=== PATIENT | male | born 1970 | race Two or more races ===

== ENCOUNTER 2019-05-24 20:22 | Emergency (ER) | payer SELFPAY ==
[2019-05-24 20:33] VITALS: BP 132/93; PULSE 89; TEMP 98.1; BMI 25.7
--- NOTE | 2019-05-24 22:03 | PDOC ---
History of Present Illness - General Chief Complaint: Chest Pain Stated Complaint: CHEST PAIN Time Seen by Provider: 05/24/19 21:47 - History of Present Illness Initial Comments: 05/24/19 23:24 48m with no pmh presents to the ED for tingling over the fingertips and toes for the past 2 months. He also rpesented to a ED yesterday for chest pain reproducible by palpation at [facility], was given Lorazepam and sent home. Pain has now resolved but he wanted a second opinion about his extremity tingling. The tingling covers the 2,3 and 4th fingertips. Saw his pcp 2 month s ago when the symtpoms started and was sent home with reassurance. Was told that he was prediabetic by ha1c 2 month ago so he started a strict healthy diet of protein and vegetable and implemented cardio routine to his workout regimen. Only supplements taken are whey protein and L-carnitine. Tendency to bite the top of his fingers, creating multiple scabs over them. Past History - Past Medical History Allergies/Adverse Reactions: Allergies Allergy/AdvReac Type Severity Reaction Status Date / Time No Known Allergies Allergy Verified 05/24/19 20:34 COPD: No Diabetes: Yes ("Pre-Diabetes") HTN: Yes - Suicide/Smoking/Psychosocial Hx Smoking History: Former smoker Have you smoked in the past 12 months: No If you are a former smoker, when did you quit?: 2016 Information on smoking cessation initiated: Yes Hx Alcohol Use: No Drug/Substance Use Hx: No Review of Systems - Review of Systems Able to Perform ROS?: Yes Is the patient limited Beninese proficient: No Constitutional: No: Symptoms Reported HEENTM: No: Symptoms Reported Respiratory: No: Symptoms reported Cardiac (ROS): No: Symptoms Reported ABD/GI: No: Symptoms Reported : No: Symptoms Reported Musculoskeletal: No: Symptoms Reported Integumentary: No: Symptoms Reported Neurological: Yes: See HPI All Other Systems: Reviewed and Negative *Physical Exam - Vital Signs Last Vital Signs Temp Pulse Resp BP Pulse Ox 98.1 F 89 20 132/93 98 05/24/19 20:24 05/24/19 20:24 05/24/19 20:24 05/24/19 20:24 05/24/19 20:24 - Physical Exam General Appearance: Yes: Nourished, Appropriately Dressed. No: Apparent Distress HEENT: positive: EOMI, [place], Normal ENT Inspection Respiratory/Chest: positive: Lungs Clear, Normal Breath Sounds. negative: Chest Tender, Respiratory Distress Cardiovascular: positive: Regular Rhythm, Regular Rate, S1, S2 Gastrointestinal/Abdominal: positive: Normal Bowel Sounds, Flat, Soft. negative : Tender Extremity: positive: Normal Capillary Refill, Normal Inspection, Normal Range of Motion, Other (negative tinnel sign) Integumentary: positive: Other (scabs over 2,3,4 dorsal surface of fingers b/l ) Neurologic: positive: Fully Oriented, Alert, Normal Mood/Affect, Normal Response , Motor Strength 02/15 ED Treatment Course - LABORATORY CBC & Chemistry Diagram: 05/24/19 22:45 05/24/19 22:45 - ADDITIONAL ORDERS Additional order review: Laboratory Results 05/24/19 05/24/19 05/24/19 22:45 22:45 22:45 Sodium 140 Potassium 3.7 Chloride 104 Carbon Dioxide 27 Anion Gap 9 BUN 20.6 H Creatinine 1.3 Est GFR (CKD-EPI)AfAm 75.84 Est GFR (CKD-EPI)NonAf 65.43 Random Glucose 99 Calcium 9.1 Total Bilirubin 0.5 AST 25 ALT 31 Alkaline Phosphatase 54 Troponin I < 0.02 Total Protein 7.0 Albumin 4.0 TSH 2.03 05/24/19 22:45 RBC 5.29 MCV 79.4 L MCHC 33.0 RDW 14.5 MPV 8.1 Neutrophils % 55.8 Lymphocytes % 27.3 Monocytes % 13.1 H Eosinophils % 3.3 Basophils % 0.5 Medical Decision Making - Medical Decision Making 05/24/19 23:36 48m with tingling over fingers and toes for 2 months. Will check electrolytes and sugar, as well as cardiac enzymes and ekg to r/o cardiac etiology. This is liekly neuropathy. Low suspicion for carpal tunnel syndrome 05/24/19 23:39 All labs wnl EKG normal sinus. Ok to dc with neuro follow up. *DC/Admit/Observation/Transfer Diagnosis at time of Disposition: Tingling in extremities - Discharge Dispostion Disposition: HOME Condition at time of disposition: Good Decision to Admit order: No - Referrals Referrals: Jerrod Short MD [Staff Physician] - Barrett Sánchez DO [Staff Physician] - - Patient Instructions Printed Discharge Instructions: DI for Atypical Chest Pain, Peripheral Neuropathy Additional Instructions: Follwo up with cardiology and neurology for your chest pain and tingling symptoms. Come back to the emergency department for any new, worsening or concerning symptoms. - Post Discharge Activity
[2019-05-24 22:56] LABS: LYMPH % 27.3 % (8-40); WHITE BLOOD COUNT 3.9 K/mm3 (4.0-10.0)
--- NOTE | 2019-05-24 23:11 | PDOC ---
Documentation entered by Sarah Chinchilla SCRIBE, acting as scribe for Gennaro Mendoza MD. Gennaro Mendoza MD: This documentation has been prepared by the Renée craig Sammi, SCRIBE, under my direction and personally reviewed by me in its entirety. I confirm that the documentation accurately reflects all work, treatment, procedures, and medical decision making performed by me. Attending Attestation - Resident Resident Name: Otoniel Coy - ED Attending Attestation I have performed the following: I have examined & evaluated the patient, The case was reviewed & discussed with the resident, I agree w/resident's findings & plan, Exceptions are as noted - HPI HPI: 05/24/19 22:27 The patient is a 48 year old male, with a significant PMH of pre-diabetes, who presents to the emergency department for evaluation of 2 months of tingling at the tips of the fingers and toes, as well as intermittent L sided chest pain. He states his symptoms began several months ago. Pt believed them to be related to his pre-DM. He subsequently lost about 20 lbs intentionally. Pt states that he went to the [facility], where he was told his chest pain is msk. Denies chest pain (currently), shortness of breath, headache and dizziness. Denies fever, chills, nausea, vomiting, diarrhea and constipation. Denies dysuria, frequency, urgency and hematuria. Allergies: NKA - Physicial Exam PE: 05/24/19 23:26 "GENERAL: Awake, alert, and fully oriented, in no acute distress. HEAD: No signs of trauma EYES: PERRLA, EOMI, sclera anicteric, conjunctiva clear ENT: Auricles normal inspection, hearing grossly normal, nares patent, oropharynx clear without exudates. Moist mucosa NECK: Nontender, no stepoffs, Normal ROM, supple, no lymphadenopathy, JVD, or masses LUNGS: Breath sounds equal, clear to auscultation bilaterally. No wheezes, and no crackles HEART: Regular rate and rhythm, normal S1 and S2, no murmurs, rubs or gallops ABDOMEN: Soft, nontender, normoactive bowel sounds. No guarding, no rebound. No masses EXTREMITIES: Normal range of motion, no edema. No clubbing or cyanosis. No cords, erythema, or tenderness NEUROLOGICAL: Cranial nerves II through XII intact. 5/5 strength and sensation in all extremities, Normal speech, normal gait, normal cerebellar function SKIN: Warm, Dry, normal turgor, no rashes or lesions noted. - Medical Decision Making 05/24/19 23:26 48 M with intermittent finger and toe tingling, as well as intermittent chest pain. Currently asymptomatic. Suspect peripheral neuropathy as cause of tingling. Will r/o ACS given chest pain and diagnosis of pre-DM. However, EKG is completely normal. - Labs, trop 05/24/19 23:50 Labs wnl Pt is well appearing, with normal vitals. Clinically stable for DC at this time. I discussed the physical exam findings, ancillary test results and final diagnoses with the patient. I answered all of the patient's questions. The patient was satisfied with the care received and felt comfortable with the discharge plan and treatment plan. The patient agrees to follow up with the primary care physician within 24-72 hours.
[2019-05-24 23:20] LABS: BASO % 0.5 % (0-2.0); EOS % 3.3 % (0-4.5); HEMOGLOBIN 13.9 GM/dL (11.7-16.9); MCH 26.2 pg (25.7-33.7); MEAN CELL VOLUME 79.4 fl (80-96); MEAN PLT VOLUME 8.1 fl (7.5-11.1); MONO % 13.1 % (3.8-10.2); NEUT % 55.8 % (42.8-82.8); PLATELET COUNT 210 K/MM3 (134-434); RBC 5.29 M/mm3 (4.00-5.60); RDW 14.5 % (11.9-15.9)
[2019-05-24 23:23] LABS: BILIRUBIN,TOTAL 0.5 mg/dL (0.2-1); BLOOD UREA NITROGEN 20.6 mg/dL (7-18); CALCIUM 9.1 mg/dL (8.5-10.1); CREATININE 1.3 mg/dL (0.55-1.3); POTASSIUM 3.7 mmol/L (3.5-5.1)
--- NOTE | 2019-05-25 11:15 | EKG ---
Test Reason : Blood Pressure : / mmHG Vent. Rate : 089 BPM Atrial Rate : 089 BPM P-R Int : 146 ms QRS Dur : 078 ms QT Int : 382 ms P-R-T Axes : 065 -12 011 degrees QTc Int : 464 ms NORMAL SINUS RHYTHM WITH SINUS ARRHYTHMIA NORMAL ECG NO PREVIOUS ECGS AVAILABLE Confirmed by MARGUERITE CORMIER MD ([id number]) on 05/25/2019 11:15:27 AM Referred By: Confirmed By:MARGUERITE CORMIER MD
== END 2019-05-25 00:04 | disposition home or self-care (01) ==
LOC: JER 20:22
DX: R20.0 Anesthesia of skin (principal); R07.89 Other chest pain; I10 Essential (primary) hypertension; R73.03 Prediabetes; Z87.891 Personal history of nicotine dependence
CPT/HCPCS: 36415; 80053; 84443; 84484; 85025; 93005; 93010; 99283-25

== ENCOUNTER 2019-07-14 09:15 | Emergency (ER) | payer SELFPAY ==
[2019-07-14 09:29] VITALS: BP 121/80; PULSE 81; TEMP 97.9; BMI 27.0
[2019-07-14] MEDS ORDERED: ACETAMINOPHEN 1000 MG/100 ML VIAL (NON FORMULARY) IVPB ONE (10:06)
[2019-07-14] MEDS ORDERED: METOCLOPRAMIDE HCL INJECTION 10 MG/2 ML VIAL IVPB ONE (10:06)
[2019-07-14] MEDS ORDERED: METOCLOPRAMIDE HCL INJECTION 10 MG/2 ML VIAL ONE (10:18)
[2019-07-14] MEDS ORDERED: ACETAMINOPHEN INJECTION 100 ML IVPB ONE (10:18)
--- NOTE | 2019-07-14 10:33 | PDOC ---
Documentation entered by Sarah Chinchilla SCRIBE, acting as scribe for Johnson Arellano MD. Johnson Arellano MD: This documentation has been prepared by the Renée craig Sammi, SCRIBE, under my direction and personally reviewed by me in its entirety. I confirm that the documentation accurately reflects all work, treatment, procedures, and medical decision making performed by me. History of Present Illness - General Stated Complaint: NUMBNESS Time Seen by Provider: 07/14/19 09:54 - History of Present Illness Initial Comments: 07/14/19 10:17 The patient is a 49 year old male who presents to the emergency department for evaluation of 3-4 days of an intermittent, throbbing like headache. The patient states associated lightheadedness and hazy vision, which he noted while in the gym a couple of days ago. He reports onset of a tingling sensation to right chin , lip and tongue last night with a recurrence this morning. The patient also complains of mild nausea and palpitations, onset several days ago. Denies fever , chills, or recent travel. Medical history: neuropath (on gabapentin, follows at [facility]), pre-diabetes Social history: occasional cigar and alcohol PCP: @ [place] Past History - Past Medical History Allergies/Adverse Reactions: Allergies Allergy/AdvReac Type Severity Reaction Status Date / Time No Known Allergies Allergy Verified 07/14/19 09:25 COPD: No Diabetes: Yes ("Pre-Diabetes") HTN: Yes Other medical history: NEUROPATHY - Immunization History Immunization Up to Date: Yes - Psycho Social/Smoking Cessation Hx Smoking History: Former smoker Have you smoked in the past 12 months: No If you are a former smoker, when did you quit?: 2016 Information on smoking cessation initiated: No Hx Alcohol Use: No (SOCIAL) Drug/Substance Use Hx: No Review of Systems - Review of Systems Constitutional: No: Chills, Fever, Night Sweats, Unexplained wgt Loss HEENTM: Yes: Blurred Vision. No: Double Vision Respiratory: No: Cough, Shortness of Breath Cardiac (ROS): Yes: Lightheadedness, Palpitations. No: Chest Pain, Edema, Syncope ABD/GI: Yes: Nausea. No: Constipated, Diarrhea, Vomiting Integumentary: No: Rash Neurological: Yes: Headache, Paresthesia. No: Weakness, Ataxia Psychiatric: Yes: Anxiety All Other Systems: Reviewed and Negative *Physical Exam - Vital Signs Last Vital Signs Temp Pulse Resp BP Pulse Ox 97.9 F 81 18 121/80 95 07/14/19 09:25 07/14/19 09:25 07/14/19 09:25 07/14/19 09:25 07/14/19 09:25 - Physical Exam Comments: 07/14/19 10:17 GENERAL: The patient is awake, alert, and fully oriented, in no acute distress. HEAD: Normal with no signs of trauma. EYES: Pupils equal, round and reactive to light, extraocular movements intact, sclera anicteric, conjunctiva clear with no pallor. ENT: Ears normal, nares patent, oropharynx clear without exudates. Moist mucous membranes. NECK: Normal range of motion, supple without lymphadenopathy, JVD, or masses. LUNGS: Breath sounds equal, clear to auscultation bilaterally. No wheeze/ crackles. HEART: Regular rate and rhythm, normal S1 and S2 without murmur or rub. ABDOMEN: Soft/nontender/nondistended. BS wnl. No guarding or rebound. No palpable masses. No hepatosplenomegaly. EXTREMITIES: Normal range of motion, no edema. No clubbing or cyanosis. No cords, erythema, or tenderness. NEUROLOGICAL: Mental status: The patient is alert and oriented x3. Cranial nerves: Cranial nerves II through XII are intact Motor: The upper extremities are 5 over 5 in all muscle groups. The lower extremities are 5 over 5 in all muscle groups. No pronator drift. Sensation: Sensation is intact to light touch throughout. Cerebellar: [id number] is normal in both upper extremities. Heel-knee- rios is normal in both lower extremities. Reflexes: 2+ and symmetric in the upper and lower extremities. Gait: Normal. Heel and toe walking are normal. Tandem gait is normal. PSYCH: (+)slightly anxious SKIN: Warm, Dry, normal turgor, no rashes or lesions noted. Heart Score/ECG Review #1 ECG reviewed & interpreted by me at: 10:55 General ECG Interpretation: Sinus Rhythm, Normal Rate (62), Normal Intervals ( qtc 438), No acute ischemic changes ED Treatment Course - LABORATORY CBC & Chemistry Diagram: 07/14/19 10:30 07/14/19 10:30 - RADIOLOGY Radiology Studies Ordered: Category Date Time Status HEAD CT WITHOUT CONTRAST [CT] Stat CT Scan 07/14/19 10:06 Ordered Medical Decision Making - Medical Decision Making 07/14/19 10:28 A portion of this note was documented by scribe services under my direction. I have reviewed the details of the note, within reason, and agree with the documentation with the following case summary and management plan written by me. 49-year-old male with no severe past medical history other than upper greater than lower extremity neuropathy of unclear etiology currently under workup at [facility], on gabapentin, presents now with about 3 days of headaches, constant with occasional exacerbations, gradual in onset and overall mild in severity, feels as though something is rattling in his head. Associated with some blurry vision but no double vision or loss of vision, no speech disturbance, no new focal weakness or numbness. Slight nausea, slight epigastric discomfort, no actual chest pain or dyspnea on exertion. No fevers or chills, cough, presents for evaluation. [facility], denies any other significant past medical history, takes no other medications. Does not smoke/ drinking/do drugs, admits to some anxiety in the setting of these recent symptoms and neuropathy diagnosis but has no personal or family history of panic attacks or diagnosis of depression/anxiety. Patient was seen here in may for his paresthesias/neuropathy symptoms, did not report headache at that time. Had MRI this year as part of his neuropathy workup which she does not recall the results of, states there were no gross abnormalities. Vitals normal Seated comfortably in stretcher, slightly anxious Neurological exam is nonfocal Cardiopulmonary exam is normal 49-year-old male with recently diagnosed neuropathy of unclear etiology presents now with headache but normal neurological exam, no other red flags on history or physical exam. Question primary headache syndrome, question part of yet undiagnosed neurologic process, patient does appear anxious and so generalized anxiety/panic disorder is also on the differential. Check basic labs EKG Treat headache with Tylenol and Reglan IV CT head Reassess and disposition accordingly 07/14/19 13:[address] wnl. Headache completely resolved after meds and some rest, remains neuro intact and asx. Agrees with d/c plan, has established care [facility] neurology should headaches persist, understands return criteria. Discharge - Discharge Information Problems reviewed: Yes Clinical Impression/Diagnosis: Tingling in extremities Headache Qualifiers: Headache type: unspecified Headache chronicity pattern: unspecified pattern Intractability: not intractable Qualified Code(s): R51 - Headache Condition: Improved - Follow up/Referral - Patient Discharge Instructions Patient Printed Discharge Instructions: DI for Headache Additional Instructions: Activity as tolerated. Stay hydrated. Blood tests and a CAT scan of the head showed no acute abnormalities. Tylenol 1000 mg every 8 hours and/or ibuprofen 600 mg every 8 hours as needed for pain. Continue your medications as previously prescribed by your physician. You should follow up with your primary doctor and neurologist as soon as possible regarding today's emergency department visit. Return to the emergency department for any new or concerning symptoms, particularly persistent or worsening headache, severe numbness or weakness, fevers or chills. - Post Discharge Activity
[2019-07-14 10:47] LABS: HEMATOCRIT 43.4 % (35.4-49); HEMOGLOBIN 14.4 GM/dL (11.7-16.9); MCH 26.7 pg (25.7-33.7); MCHC 33.2 g/dl (32.0-35.9); MEAN CELL VOLUME 80.5 fl (80-96); PLATELET COUNT 223 K/MM3 (134-434); RBC 5.39 M/mm3 (4.00-5.60); RDW 16.1 % (11.9-15.9); WHITE BLOOD COUNT 5.1 K/mm3 (4.0-10.0)
[2019-07-14 11:38] LABS: BILIRUBIN,TOTAL 0.6 mg/dL (0.2-1); BLOOD UREA NITROGEN 12.9 mg/dL (7-18); CALCIUM 9.2 mg/dL (8.5-10.1); CREATININE 1.1 mg/dL (0.55-1.3); POTASSIUM 4.5 mmol/L (3.5-5.1); TOT PROT 7.2 g/dl (6.4-8.2)
--- NOTE | 2019-07-14 15:35 | EKG ---
Test Reason : Blood Pressure : / mmHG Vent. Rate : 062 BPM Atrial Rate : 062 BPM P-R Int : 154 ms QRS Dur : 080 ms QT Int : 432 ms P-R-T Axes : 067 -17 000 degrees QTc Int : 438 ms NORMAL SINUS RHYTHM NORMAL ECG WHEN COMPARED WITH ECG OF 24-MAY-2019 20:31, NO SIGNIFICANT CHANGE WAS FOUND Confirmed by Kalia Carroll MD ([id number]) on 07/14/2019 3:34:31 PM Referred By: Confirmed By:Kalia Carroll MD
== END 2019-07-14 13:39 | disposition home or self-care (01) ==
LOC: JER 09:15
PROC: 3E033NZ Introduction of Analgesics, Hypnotics, Sedatives into Peripheral Vein, Percutaneous Approach (ICD-10-PCS; principal; 2019-07-14)
PROC: 3E033GC Introduction of Other Therapeutic Substance into Peripheral Vein, Percutaneous Approach (ICD-10-PCS; 2019-07-14)
PROC: 3E033GC Introduction of Other Therapeutic Substance into Peripheral Vein, Percutaneous Approach (ICD-10-PCS; 2019-07-14)
DX: I10 Essential (primary) hypertension (principal); G62.9 Polyneuropathy, unspecified; R73.03 Prediabetes
CPT/HCPCS: 36415; 70450-TC; 80053; 85027; 93005; 93010; 99282-25; J0131